=== PATIENT | female | born 1955 | race Asian ===

== ENCOUNTER 2021-11-30 19:38 | Emergency (ER) | payer OTHER ==
[~2021-11-30] VITALS: Ht 172.7 cm; Wt 98.0 kg
[2021-11-30 19:57] LABS: PLATELET COUNT 371 K/uL (152-353)
[2021-11-30 20:03] LABS: POTASSIUM 3.9 mmol/L (3.6-5.2)
[2021-11-30 20:47] VITALS: BP 152/78; TEMP 98.6
[2021-11-30] MEDS ORDERED: [UNRECOGNIZED DRUG - OTHER] IM (22:51)
[2021-11-30] MEDS ORDERED: ZINC SULFATE220 M2 PO (22:52)
[2021-11-30] MEDS ORDERED: GEODON60 MG PO (22:53)
[2021-11-30] MEDS ORDERED: LEVE500T5 PO (22:53)
[2021-11-30] MEDS ORDERED: OLANZAPINE10 M2 PO (22:54)
[2021-11-30] MEDS ORDERED: GABA100C2 PO (22:55)
[2021-11-30] MEDS ORDERED: PHENYTOIN EX100 MG PO (22:55)
[2021-11-30] MEDS ORDERED: LACTULOSE10 GM/15 M PO (22:56)
[2021-11-30] MEDS ORDERED: VALPROIC ACID PO (22:57)
[2021-11-30] MEDS ORDERED: HALO5INJ3 IM (22:58)
[2021-11-30] MEDS ORDERED: TYLENOL325 MG PO (22:58)
[2021-11-30] MEDS ORDERED: OLANZAPINE10 M1 IM (22:59)
[2021-11-30] MEDS ORDERED: ONDANSETRON4 M2 PO (23:00)
== END 2021-11-30 20:47 | disposition still patient (30) ==
LOC: ED 19:38
PROVIDERS: Emergency Medicine
DX: F20.89 Other schizophrenia (principal); Z11.52 Encounter for screening for COVID-19; Z04.6 Encounter for general psychiatric examination, requested by authority
CPT/HCPCS: 36415; 80053; 85008; 85027; 87635; 99283; U0003

== ENCOUNTER 2022-09-14 19:56 | Emergency (ER) | payer OTHER ==
[~2022-09-14] VITALS: Ht 167.6 cm; Wt 80.7 kg
[~2022-09-14 19:56] MED LIST: ACET-206 PO; BLOOMIS59 IM; CHOL100034 PO; DIVALPROEX250 MG PO; GABA100C2 PO; GEODON60 MG PO; HALO5INJ3 IM; LACTSYP31 PO; LACTULOSE10 GM/15 M PO; LEVE500T5 PO; OLANZAPINE10 M1 IM; OLANZAPINE10 M2 PO; OLANZAPINE10 MG PO; ONDANSETRON4 M2 PO; PHENYTOIN EX100 MG PO; TYLENOL325 MG PO; VALPROIC ACID PO; ZINC SULFATE220 M2 PO; ZINC220C4 PO; [UNRECOGNIZED DRUG - OTHER] IM
[2022-09-14 19:58] VITALS: BP 192/91; TEMP 97.7
[2022-09-14 20:45] LABS: PLATELET COUNT 320 K/uL (152-353)
[2022-09-14 20:52] LABS: POTASSIUM 3.8 mmol/L (3.6-5.2)
[2022-09-15] MEDS ORDERED: AMLODIPINE BESYLATE PO (08:53)
[2022-09-15] MEDS ORDERED: VITAMIN C1000 MG PO (09:00)
[2022-09-15] MEDS ORDERED: D3 20002000 UNIT PO (09:03)
[2022-09-15] MEDS ORDERED: LOSA50TA PO (09:10)
[2022-09-15] MEDS ORDERED: DAILY MULTI PO (09:13)
== END 2022-09-14 21:30 | disposition still patient (30) ==
LOC: ED 19:56
PROVIDERS: Emergency Medicine
DX: R46.89 Other symptoms and signs involving appearance and behavior (principal); F20.89 Other schizophrenia; Z11.52 Encounter for screening for COVID-19; Z04.6 Encounter for general psychiatric examination, requested by authority
CPT/HCPCS: 36415; 80053; 85027; 87635; 93005; 99283; U0003